=== PATIENT | male | born 1965 | race Caucasian/White ===

== ENCOUNTER → 2016-09-24 | Outpatient (CLI) | payer OTHER ==
--- NOTE | 2016-09-24 16:05 | CR ---
EXAMINATION: Left wrist HISTORY: Fracture COMPARISON: 08/19/2016 TECHNIQUE: 2 views FINDINGS/IMPRESSION: There is stable screw and plate fixation of the distal radius. The fracture magnus ears nearly well-healed. The remaining visualized osseous structures appear normal.
== END ==
LOC: MW.CHORTHO 09:43
PROVIDERS: ATTEND Physician Assistant
DX: S62.102A Fracture of unspecified carpal bone, left wrist, initial encounter for closed fracture (principal); Z96.7 Presence of other bone and tendon implants; Z87.81 Personal history of (healed) traumatic fracture
CPT/HCPCS: 73100-26-LT; 73100-LT

== ENCOUNTER → 2016-11-06 | Outpatient (CLI) | payer OTHER ==
--- NOTE | 2016-11-06 15:45 | CR ---
EXAMINATION: Left wrist HISTORY: Fracture COMPARISON: 09/24/2016 TECHNIQUE: 2 views FINDINGS/IMPRESSION: Screw and plate hardware fixate the distal radius, unchanged. The remaining oss eous structures and joint spaces appear intact. Bone mineralization otherwise appears normal.
== END | disposition home or self-care (01) ==
LOC: MW.CHORTHO 07:51
PROVIDERS: ATTEND Physician Assistant
DX: S62.102A Fracture of unspecified carpal bone, left wrist, initial encounter for closed fracture (principal)
CPT/HCPCS: 73100-26-LT; 73100-LT